=== PATIENT | male | born 1970 | race Two or more races ===

== ENCOUNTER 2019-03-23 05:39 | Inpatient (IN) | payer OTHER ==
[2019-03-23] VITALS (19 sets, daily range): BP systolic 119–146; BP diastolic 73–96
[~2019-03-23] VITALS: Ht 177.8 cm; Wt 128.8 kg
[2019-03-23] MEDS ORDERED: Vancomycin 1gm vial IVPB ONE (06:28)
[2019-03-23] MEDS ORDERED: Gelfoam Size TOPIC ONE (06:28)
[2019-03-23] MEDS ORDERED: Bacitracin 50000 Units Vial ONE (06:28)
[2019-03-23] MEDS ORDERED: Thrombin 5000 units TOPIC ONE (06:28)
[2019-03-23] MEDS ORDERED: OMEPRAZOLE20 M2 ORAL (06:30)
[2019-03-23] MEDS ORDERED: NORVASC10 MG ORAL (06:30)
[2019-03-23] MEDS ORDERED: LISINOPRIL20 MG ORAL (06:30)
[2019-03-23] MEDS ORDERED: Lidocaine 1% MPF 10mg/ml 5ml ONE (06:42)
[2019-03-23] MEDS ORDERED: Phenylephrine 10mg/ml Vial ONE (06:42)
[2019-03-23] MEDS ORDERED: Dexamethasone 4mg/ml vial ONE (06:42)
[2019-03-23] MEDS ORDERED: fentaNYL 100 mcg/2 mL IV ONE (06:44)
[2019-03-23] MEDS ORDERED: Midazolam 2mg/2ml Inj ONE (06:44)
--- NOTE | 2019-03-23 06:53 | Pre-Procedure Note/Attestation ---
Pre-Procedure Note/Attestation Complete Prior to Procedure Planned Procedure: not applicable Procedure Narrative: Cervical 56 Artificial disc replacement and Cervical 67 anterior cervical discectomy and fusion Indications for Procedure Pre-Operative Diagnosis: Herniation C56,67 Attestation I attest that I discussed the nature of the procedure; its benefits; risks and complications; and alternatives (and the risks and benefits of such alternatives ), prior to the procedure, with the patient (or the patient's legal sales representative livestock). I attest that, if there was a reasonable possibility of needing a blood transfusion, the patient (or the patient's legal sales representative livestock) was given the [facility] standardized written summary, pursuant to the [place] Blood Safety Act ([place] Health and Safety Code # 1645, as amended). I attest that I re-evaluated the patient just prior to the surgery and that there has been no change in the patient's H&P, except as documented below: Luther Villaseñor MD Mar 23, 2019 06:53
--- NOTE | 2019-03-23 06:54 | Brief Operative Note ---
Immediate Post Operative Note Operative Note Chief Complaint: neck pain and radiculopathy Pre-op Diagnosis: Herniation C56,67 Procedure: Cervical 56 Artificial disc replacement and Cervical 67 anterior cervical discectomy and fusion Post-op Diagnosis: same as pre-op Findings: consistent w/pre-op dx studies Surgeon: Charleen Filler Feeder: Hilda Anesthesiologist: AYDEE Anesthesia: general Specimen: none Complications: none Condition: stable Fluids: ivf Estimated Blood Loss: minimal Drains: none Implant(s) used?: Yes - nuvasive interlock c sz 6 [id number], prodisc c sz5 Luther Villaseñor MD Mar 23, 2019 06:54
[2019-03-23] MEDS ORDERED: Zemuron 50mg/5ml Inj IV ONE (06:56)
[2019-03-23] MEDS ORDERED: Succinylcholine 20mg/ml 10ml vial ONE (06:56)
[2019-03-23] MEDS ORDERED: NS Irrig 1000ml ONE (07:00)
[2019-03-23] MEDS ORDERED: LR 1000ml ONE (07:00)
[2019-03-23] MEDS ORDERED: Metoprolol 5mg/5ml Inj ONE (07:00)
[2019-03-23] MEDS ORDERED: ceFAZolin sod 2 GM in D5W 55 ML IVPB ONE (07:00)
[2019-03-23] MEDS ORDERED: Sterile Water Irrig 1000ml IRRIG ONE (07:00)
[2019-03-23] MEDS ORDERED: Propofol 1,000mg/ 100ml btl IV ONE (07:00)
[2019-03-23] MEDS ORDERED: Sodium Chloride 10ml vial INJ ONE (08:08)
[2019-03-23] MEDS ORDERED: Morphine Sulfate 10mg/ml Inj ONE (08:08)
[2019-03-23] MEDS ORDERED: Glycopyrrolate 0.2mg/ml 1ml Vial ONE (08:08)
[2019-03-23] MEDS ORDERED: Acetaminophen (Non formulary) 100 ML IV ONE (08:15)
[2019-03-23] MEDS ORDERED: LR 1000ml 1,000 ML IVLG SCH (08:18)
--- NOTE | 2019-03-23 08:18 | Anethesia Preoperative Eval ---
Anesthesia Pre-op PMH/ROS General Date of Evaluation: Mar 23, 2019 Time of Evaluation: 07:00 Anesthesiologist: Maryjo ASA Score: ASA 2 Mallampati Score Class I : Soft palate, uvula, fauces, pillars visible Class II: Soft palate, uvula, fauces visible Class III: Soft palate, base of uvula visible Class IV: Only hard plate visible Mallampati Classification: Class II Surgeon: Charleen Diagnosis: Cervical radiculopathy Surgical Procedure: ACDF Anesthesia History: none Family History: no anesthesia problems Allergies: Coded Allergies: No Known Allergies (Unverified , 03/20/19) Medications: see eMAR Patient NPO?: Yes NPO Date: Mar 22, 2019 NPO Time: 2199 Past Medical History Cardiovascular: Reports: HTN - stable; Denies: CAD, CO, valve dz, arrhythmia, other Pulmonary: Reports: MANUEL; Denies: asthma, COPD, other Gastrointestinal/Genitourinary: Reports: GERD; Denies: CRI, ESRD, other Neurologic/Psychiatric: Reports: other - chronic pain; Denies: dementia, CVA, depression/anxiety, TIA Endocrine: Denies: DM, hypothyroidism, steroids, other HEENT: Denies: cataract (L), cataract (R), glaucoma, KLUTI KAAH (L), KLUTI KAAH (R), other Hematology/Immune: Denies: anemia, DVT, bleeding disorder, other Musculoskeletal/Integumentary: Denies: OA, RA, DJD, DDD, edema, other Other: obesity PMH Narrative: as above PSxH Narrative: None Anesthesia Pre-op Phys. Exam Physician Exam Last Vital Signs Date Time Temp Pulse Resp B/P (MAP) Pulse Ox O2 Delivery O2 Flow Rate FiO2 03/23/19 06:51 97.7 82 20 119/73 (88) 95 03/23/19 06:20 Room Air Constitutional: NAD Neurologic: CN 2-12 intact Respiratory: CTA Gastrointestinal: S/NT/ND Airway Exam Mallampati Score: Class II MO: full Neck: stiff ROM: limited Teeth: intact Dentures: no upper, no lower Anesthesia Pre-op A/P Labs see chart Studies Pre-op Studies: EKG - NSR Risk Assessment & Plan Assessment: ASA 2 Plan: GA with ETT neuromonitoring Status Change Before Surgery: No Pre-Antibiotics Drug: Ancef 2 gr. Given Within 1 Hr of Incision: Yes Time Given: 07:40 Harjeet Sibley MD Mar 23, 2019 08:18
[2019-03-23] MEDS ORDERED: Ketorolac 30mg Inj ONE (08:24)
[2019-03-23] MEDS ORDERED: Hydromorphone 0.5mg/0.5ml inj IVP PRN (08:30)
[2019-03-23] MEDS ORDERED: Ketorolac 30mg Inj IV PRN (08:30)
[2019-03-23] MEDS ORDERED: DiphenhydrAMINE 50mg/ml Inj IVP PRN (08:30)
[2019-03-23] MEDS ORDERED: Meperidine 50mg/ml Inj(FOR RIGORS ONLY) IV PRN (08:30)
[2019-03-23] MEDS ORDERED: Propofol 200mg/20ml IV ONE (08:34)
--- NOTE | 2019-03-23 09:45 | Immediate Post-Op Evaluation ---
Immediate Post-Op Evalulation Immediate Post-Op Evalulation Procedure: ACDF C5-C7 Date of Evaluation: Mar 23, 2019 Time of Evaluation: 09:43 IV Fluids: 1000 Blood Products: none Estimated Blood Loss: 50 Urinary Output: 150 Blood Pressure Systolic: 128 Blood Pressure Diastolic: 86 Pulse Rate: 76 Respiratory Rate: 20 O2 Sat by Pulse Oximetry: 98 Temperature (Fahrenheit): 97.6 Pain Score (1-10): 2 Nausea: No Vomiting: No Complications none Patient Status: awake, patent, extubated, none Hydration Status: adequate Harjeet Sibley MD Mar 23, 2019 09:45
--- NOTE | 2019-03-23 11:10 | NUR ---
NURSE NOTES: Called RT to get Incentive Spirometer. Waiting for IS.
--- NOTE | 2019-03-23 11:16 | NUR ---
NURSE NOTES: Patient aware alert x4; on nasal cannula 2 Liter, patient sats 95%, no sign of distress and shortness of breath; no sign of chest pain; post-op cervical dressing on the anterior neck, Dermaband dry and intact, no sing of difficulty on breathing and gagging. 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 Head of the bed elevated, side rails up x2, breaks engaged; SCD on; Vitals taken upon arraival to the unit. Will take vitals Q30 minutes for one hour. Belonging lists listed and signed by patient's . Ice bag on the neck. Ice chips provided. Call light within reach. Will keep monitoring.
--- NOTE | 2019-03-23 11:23 | Diagnostic Imaging Report ---
INDICATION: Pain, intraoperative TECHNIQUE: Intraoperative imaging Fluoroscopy time: 39.5 seconds Total dose: [id number] mGym2 Total number of images: 6 COMPARISON: None FINDINGS: 6 intraoperative images demonstrate localizer needles projected over the C4-5 and C5-6 discs. Subsequent image demonstrates a surgical tool projected at the anterior aspect of the C5-6 disc. Subsequent images document placement of a disc prosthesis at C5-6, placement of anterior fusion hardware at C6-7. Hardware appears well aligned IMPRESSION: Intraoperative imaging, as described
[2019-03-23] MEDS ORDERED: Naloxone 0.4mg/ml Inj IVP PRN (12:00)
[2019-03-23] MEDS ORDERED: Morphine Sulfate 4mg/ml Inj (IV USE ONLY) IV PRN (12:00)
[2019-03-23] MEDS ORDERED: Metoclopramide 10mg/2ml Inj IVP PRN (12:00)
[2019-03-23] MEDS ORDERED: HYDROcodone/Acetamin 5/325 tab ORAL PRN (12:00)
[2019-03-23] MEDS ORDERED: Morphine Sulfate 2mg/ml Inj(IV/IM USE ONLY) IV PRN (12:00)
[2019-03-23] MEDS ORDERED: HYDROcodone/Acetamin 7.5/325 tab ORAL PRN ×2 (12:00)
[2019-03-23] MEDS ORDERED: Milk of Magnesia 30ml Ud ORAL PRN (12:00)
[2019-03-23] MEDS ORDERED: HYDROmorphone 1mg/ml Carpuject IVP PRN (12:00)
[2019-03-23] MEDS ORDERED: Chloraseptic Spray 20mL Bottle ORAL PRN (12:30)
[2019-03-23] MEDS: NS w/KCl 20mEq 1000ml 1,000 ML IV SCH ×2 (12:49→22:33)
[2019-03-23] MEDS: Dexamethasone 4mg/ml vial IVP SCH ×2 (12:56→17:20)
--- NOTE | 2019-03-23 13:35 | NUR ---
CASE MANAGEMENT:REVIEW 48 YR OLD MALE HERE FOR ELECTIVE SURGERY SI: NECK PAIN AND RADICULOPATHY 98.0 95 19 134/80 95% ON RA IS: TO SURGERY: C56. ARTIFICIAL DISC PLACEMENT IV ANCEF Q8HRS IVF@100/HR IV DECADRON : TO MED/SURG 3 EAST POST OP INTERQUAL CRITERIA MET
[2019-03-23] MEDS: ceFAZolin sod 1 GM in D5W 55 ML IV SCH ×2 (15:41→23:30)
--- NOTE | 2019-03-23 15:44 | General Progress Note ---
Assessment/Plan Assessment/Plan: Herniation C56,67 Cervical 56 Artificial disc replacement and Cervical 67 anterior cervical discectomy and fusion neck pain PLAN 1. incentive spirometry 2. DVT prophylaxis 3. PT evaluation and therapy 4. Hydration 5. Pain management 6. discharge once stable with outpatient follow up Subjective Allergies: Coded Allergies: No Known Allergies (Unverified , 03/20/19) Subjective asked to follow up post op Objective Last 24 Hour Vital Signs Date Time Temp Pulse Resp B/P (MAP) Pulse Ox O2 Delivery O2 Flow Rate FiO2 03/23/19 13:50 97.9 94 19 119/82 (94) 95 03/23/19 12:00 98.0 95 19 134/80 (98) 95 03/23/19 11:25 97.8 79 20 132/96 (108) 96 03/23/19 11:05 98.0 80 19 134/83 (100) 96 03/23/19 11:00 97.4 03/23/19 11:00 97.6 83 19 129/82 (98) 96 03/23/19 10:50 97.4 89 18 133/74 96 Nasal Cannula 3 03/23/19 10:40 86 18 144/83 95 Nasal Cannula 3 03/23/19 10:30 84 17 132/88 97 Nasal Cannula 3 03/23/19 10:20 79 16 128/91 96 Nasal Cannula 3 03/23/19 10:10 82 15 137/83 96 Nasal Cannula 3 03/23/19 10:00 88 17 128/88 95 Nasal Cannula 3 03/23/19 09:50 90 18 133/85 96 Simple Mask 6 03/23/19 09:45 86 15 146/85 97 Simple Mask 6 03/23/19 09:45 76 20 98 03/23/19 09:40 91 14 142/90 98 Simple Mask 6 03/23/19 09:36 97.4 86 16 138/76 98 Simple Mask 6 03/23/19 06:51 97.7 82 20 119/73 (88) 95 03/23/19 06:20 Room Air Height (Feet): 5 Height (Inches): 10.00 Weight (Pounds): 284 Objective WDWN NAD clear breath sounds bilaterally without rhonchi or wheeze [id number] without MRG NABS nontender no HSM no CCE nonfocal Chris Cervantes MD Mar 23, 2019 15:44
--- NOTE | 2019-03-23 16:00 | NUR ---
NURSE NOTES: Patient able to urinate. Will keep monitoring.
--- NOTE | 2019-03-23 16:30 | NUR ---
NURSE NOTES: New bag of ice bag provided.
[2019-03-23] MEDS: Docusate 100mg cap ORAL SCH (17:19)
--- NOTE | 2019-03-23 18:29 | NUR ---
NURSE NOTES: Patient drink 1200cc.
--- NOTE | 2019-03-23 19:24 | NUR ---
HAND-OFF: Report given to ONELIA uGidry.
--- NOTE | 2019-03-23 19:36 | NUR ---
NURSE NOTES: Report taken from ONELIA Thomas. Patient is awake, family at bedside, A&Ox4. Patient moved to chair despite RN instruction to wait for assistance, no issues, did remind the patient of potential risks post-op. No signs of distress on 3L NC. Minor complaint of soreness and pain at cervical site, 12/13. IV site/c/d/i and patent, running NS+20KCl at 100mls/hr. Surgical site c/d/i, open to air. D/C for patient once stable. Bed in lowest position, call light within reach.
[2019-03-23] MEDS: Morphine Sulfate 4mg/ml Inj (IV USE ONLY) IV PRN (21:16)
[2019-03-24] MEDS: Dexamethasone 4mg/ml vial IVP SCH ×2 (00:02→05:07)
[2019-03-24 00:37] VITALS: BP 119/75
--- NOTE | 2019-03-24 03:15 | Operative Note - Dictated ---
DATE OF OPERATION: 03/23/2019 NOTE: "POOR AUDIO QUALITY/DISTORTED AUDIO" SURGEON: Luther Villaseñor MD, Orthopaedic Spine Surgeon. HAND BUNCH MAKER: ALYSSA Meza. PREOPERATIVE DIAGNOSES: 1. Intractable neck pain. 2. Radiculopathy. 3. Herniation, C5-C6 and C6-C7. 4. Neural foraminal stenosis, C5-C6 and C6-C7. 5. Stenosis. POSTOPERATIVE DIAGNOSES: 1. Intractable neck pain. 2. Radiculopathy. 3. Herniation, C5-C6 and C6-C7. 4. Neural foraminal stenosis, C5-C6 and C6-C7. 5. Stenosis. PROCEDURE PERFORMED: 1. Anterior cervical discectomy and artificial disc replacement of C5-C6 using a Synthes ProDisc-C 5 height. 2. Anterior cervical discectomy and fusion of C6-C7 NuVasive Interlock C size 6 PEEK cage and mm screws Osteocel allograft bone and local autograft. 3. Use of intraoperative microscope. 4. Motor-evoked potential monitoring. 5. Somatosensory-evoked potential monitoring. 6. Supervision and interpretation of fluoroscopy. COMPLICATIONS: None. ANESTHESIA: General. ESTIMATED BLOOD LOSS: Less than 100 mL. INDICATIONS FOR SURGERY: This patient is a 48-year-old male who has a history of diagnoses as listed above. As of result of this, the patient sustained intractable neck pain, radiculopathy, herniation at C5-C6 and C6-C7, neural foraminal stenosis at C5-C6 and C6-C7, and stenosis. We tried a course of conservative management, but despite this course, there was still a significant component of persistent, recalcitrant neck pain and arm pain. The MRI demonstrated significant neural foraminal compromise secondary to disc herniations at C5-C6 and C6-C7. We had a long discussion with Man regarding the risks and benefits of surgery. Our discussion included but was not limited to nonoperative management, chiropractic management, another epidural steroid injection as well as definitive management in the form of surgery. We recommended an artificial disc replacement of cervical C5-C6 and anterior cervical discectomy and fusion of cervical C6-C7 as final definitive management. We reviewed the risks and benefits of surgery with the patient. Our discussion included a comprehensive review of the clinical issues and the nature of the clinical decision. We reviewed the alternatives, including doing nothing. The patient elected to proceed accordingly with an artificial disc replacement of cervical C5-C6 and anterior cervical discectomy and fusion of cervical C6-C7. We had a long discussion regarding the risks, alternatives, and benefits of surgery. Our description of the risks included a discussion in person as well as a signed consent which detailed all pertinent risks from the procedure itself. Briefly, our discussion included but was not limited to infection, bleeding, pseudarthrosis, spinal cord injury, neurovascular injury, dural tear, CSF leak, neuropathy, paralysis, permanent weakness/drop foot/drop arm, paresthesias, blindness, palsy, and weakness. The patient understood there may be a need for a revision surgery or additional procedures. Approach-related complications including dysphonia, dysphagia, blindness, permanent vocal cord and neural injury, hematoma, swallowing and breathing difficulty. Medical complications were reviewed including liver, kidney, shock, cardiopulmonary failure, anesthesia complications including , swelling, damage to the musculature, larynx/voice injury or loss, esophagus/throat, trachea, blood vessels and muscles/muscular sprain and lungs/pneumothorax during this surgical procedure; injury to deeper structures may be temporary or permanent. After this review of risks, the patient understood these and elected to proceed. A written and verbal consent was given. We discussed the pros and cons of all the alternatives. We discussed the uncertainties associated with the decision. Afterwards, I assessed the patient's understanding and explored their preferences. All questions were answered and no guarantees were given. Medical clearance was obtained prior to surgery. INTRAOPERATIVE FINDINGS: A discrete disc herniation which was found posterior to an obvious tear in the posterior longitudinal ligament at C5-C6. This was causing a considerable amount of neural foraminal stenosis with significant encroachment on the neural foramina and spinal cord, which was being impinged as a result of this pressure. Upon inspection of the interspace at cervical C6-C7, I noticed a rent in the posterior longitudinal ligament or PLL. Upon inspection of this tear once it was mobilized with Kerrison rongeurs, there was a disc fragment and herniation causing encroachment on the neural foramina and spinal cord posterior to the PLL. This was resected as well which caused some noted relief on the underlying neural elements. DESCRIPTION OF PROCEDURE: Under the benefit of general endotracheal anesthesia and with the assistance of the entire operative team, the patient was moved from the [facility] onto the operative table in the supine position. The head was secured and carefully positioned appropriately. Bilateral arms were secured with Gel Pads and foam and all bony prominences were padded. For the bilateral lower extremities, SCD and BRANDI hose were placed for DVT prophylaxis. A surgical timeout was called which corroborated our planned procedure of artificial disc replacement of an artificial disc replacement of cervical C5-C6 and anterior cervical discectomy and fusion of cervical C6-C7. Preoperative antibiotics were administered within 30 minutes of the incision for antibiotic prophylaxis. Using lateral fluoroscopic radiography, the operative levels were delineated. Next, the wound was prepped and draped with chlorhexidine and sterile drapes. An incision was based on lateral fluoroscopy and we centered our incision at the C5-C6 and C6-C7 interspace and next using a standard Mcintosh-Morales anterior-based approach, the incision was taken down through the skin and subcutaneous tissues until the vertebral bodies and their corresponding disc spaces were visualized. A needle was placed into the interspace to confirm placement of the operative interspace and we performed the remainder of procedure under microscopic visualization. Next, using bipolar and Bovie cautery to ensure meticulous hemostasis, the longus colli was mobilized bilaterally and retractors were placed deep to the longus colli bilaterally to address retraction. Next, we turned our attention to the radical anterior discectomy. This was initially performed at C5-C6 first by using a 15 blade scalpel followed by narrow pituitaries and a Microsect 5-B curette was used to denude the endplate of all cartilaginous tissue. Next, using a [employer] AM8 drill bit, the vertebral endplates were denuded of all residual cartilage in a nopt-co-tfql and yscio-jd-msbou fashion, and ultimately the posterior uncinate joints bilaterally and posterior osteophytic lips and margins were carefully denuded until clear visualization of the posterior longitudinal ligament was possible. An endplate preparation was performed in the exact same fashion using an intervertebral candy dipper hand, sequential distraction was obtained throughout the disc space. We saw a tear/rent in the PLL and this was carefully mobilized and dissected using a Microsect 1-B curette until we visualized a discrete disc herniation with compression of the spinal cord as well as neural foramina, which was sided. This neural foraminal compression was carefully resected using a Kerrison-1 and Kerrison-2 rongeurs until complete decompression of the spinal cord was visualized and complete decompression of the neural foramina and nerve root therein as well as the axilla and lateral margin of the nerve root was visualized and subsequently completely decompressed. The family was notified at one-hour intervals throughout the procedure to provide for consistent updates. We next turned our attention towards trialing our implant within the disc space. We initially tried size 5 and this ProDisc Cervical spacer fit well in regard to depth and width. This implant was opened and prepared. Next, under direct visualization, I confirmed excellent fit in respect to the anterior and posterior vertebral bodies, the uncinate joints and in regard to toggle. Once satisfied with this placement on serial AP and lateral fluoroscopy, I turned my attention towards cutting our didier. These were cut in the bones using a reciprocating drill and afterwards all free fragments of bone were irrigated. Next, FloSeal was placed into the interspace, then removed in its entirety and the implant was inserted using fluoroscopic guidance. Next, the Synthes ProDisc-C size 5 ADR was then carefully advanced and secured into the intervertebral space under direct visualization and with supervision of AP and lateral fluoroscopic views. I next turned my attention towards the radical anterior discectomy. This was then performed at Cervical C6-C7 first by using a 15 blade scalpel followed by narrow pituitaries and a Microsect 5-B curette was used to denude the endplate of all cartilaginous tissue. Next, using a [employer] AM8 drill bit, the vertebral endplates were denuded of all cartilaginous tissue in a rjia-fl-vypi and skwxq-oj-rwsxb fashion, and ultimately the posterior uncinate joints bilaterally and posterior osteophytic lips and margins were carefully denuded until wide and thorough visualization of the posterior longitudinal ligament was possible. At this level, the endplate preparation was performed in the exact same fashion using an intervertebral candy dipper hand, sequential distraction was obtained throughout the disc space. We saw a tear/rent in the PLL and this was carefully mobilized and dissected using a Microsect 1-B curette until we visualized an obvious disc herniation with compression of the spinal cord as well as neural foramina which was sided. This neural foraminal compression was carefully resected using a Kerrison-1 and Kerrison-2 rongeurs until complete decompression of the spinal cord was visualized and complete decompression of the neural foramina and nerve root therein as well as the axilla and lateral margin of the nerve root was visualized and subsequently completely decompressed. We next turned our attention towards trialing our implant within the disc space. We initially tried size 5 and afterwards size 6 trial from the NuVasive Interlock system at each level, which appeared to be appropriate under AP and lateral fluoroscopy as well as in terms of its height, depth, width, and lack of toggle. The PEEK (polyetheretherketone) interbody cages were then both packed with allograft bone from Osteocel and local autograft bone matrix. Next, these were then carefully advanced and secured into their intervertebral spaces under direct visualization and with supervision of AP and lateral fluoroscopic views. We next turned our attention towards plating. Plating was performed at each level with the NuVasive Interlock-C plating system. A total of screws, size mm in length were inserted and confirmed under AP and lateral fluoroscopy and confirmed to be in excellent position. After a finger sweep, we confirmed removal of all sponges. The retractor was removed and we next turned our attention to meticulous hemostasis with FloSeal and bipolar cautery. After the sponge and needle count was again found to be correct with our second count, we next turned our attention to closure. The wound was again copiously irrigated with antibiotic-impregnated saline. Closure consisted of 4-0 clear nylon for the platysma and 5-0 clear nylon for the superficial skin. Final skin closure and dressings consisted of Dermabond. Prior to final closure, a final radiograph was obtained, which demonstrated the hardware was intact with excellent position throughout. The patient tolerated the procedure well. The patient was carefully extubated after the conclusion of surgery. We discussed the findings of the surgery with the family upon completion of the case. At this point, the patient was transferred to the spine floor for further observation. Luther Villaseñor M.D. DR: ABBE JOB#: [id number] CC:
[2019-03-24 04:00] VITALS: BP 131/78
[2019-03-24] MEDS: Morphine Sulfate 4mg/ml Inj (IV USE ONLY) IV PRN (04:21)
--- NOTE | 2019-03-24 07:15 | NUR ---
NURSE NOTES: Report received from Campos ROUSSEAU, rounds made. Patient sitting at bedside, alert, oriented x4 calm. Tolerating breakfast, no NV. Denies pain at this time. No distress on RA. Anterior right/mid neck surgical site, CDI, dermabond, surrounding skin intact, no redness/swelling or drainage. CMS + no NT, wiggles, skin warm, hand grasps/pedal pushes equal/strong. Encouraged IS use, (patient demonstrated correctly, reinforced indication and 10x/hr), verbalized understanding. Call light in reach, bed in lowest position, will continue to monitor.
--- NOTE | 2019-03-24 07:20 | NUR ---
HAND-OFF: Report given to ONELIA Harvey. Patient is awake and VS stable.
[2019-03-24 08:00] VITALS: BP 128/78
[2019-03-24] MEDS: NS w/KCl 20mEq 1000ml 1,000 ML IV SCH (08:27)
[2019-03-24] MEDS: ceFAZolin sod 1 GM in D5W 55 ML IV SCH (08:28)
[2019-03-24] MEDS: Docusate 100mg cap ORAL SCH (08:35)
--- NOTE | 2019-03-24 10:28 | NUR ---
PT Note PT maco completed. Patient was educated on cervical spine precautions and proper body mechanics. Patient verbalized his understanding. No further PT treatment needed at this time. Addendum: 03/24/19 at 1028 by JASON ROBINS PT Amended: Links added.
--- NOTE | 2019-03-24 10:52 | 48 Hour Post Anesthesia Eval ---
Post Anesthesia Evaluation Procedure: ACDF C5-C7 Date of Evaluation: Mar 24, 2019 Time of Evaluation: 10:50 Blood Pressure Systolic: 128 0: 78 Pulse Rate: 64 Respiratory Rate: 22 Temperature (Fahrenheit): 97.6 O2 Sat by Pulse Oximetry: 98 Airway: patent Nausea: No Vomiting: No Pain Intensity: 3 Hydration Status: adequate Cardiopulmonary Status: stable Mental Status/LOC: patient returned to baseline Follow-up Care/Observations: n/a Post-Anesthesia Complications: none Follow-up care needed: ready to discharge Harjeet Sibley MD Mar 24, 2019 10:51
[2019-03-24 12:00] VITALS: BP 109/62
[2019-03-24] MEDS ORDERED: NORCO 10-325 T1 EACH ORAL (12:32)
--- NOTE | 2019-03-24 13:00 | NUR ---
NURSE NOTES: Discharge instructions reviewed with patient and spouse, verbalized understanding. IV heplock discontinued, no active bleeding. All belongings (IS sent) and discharge instructions given to patient. Anterior neck surgical site remains unchanged. Patient showered prior to discharge. Patient ambulated down to lobby with RN, in stable condition. Discharged home at 1300.
--- NOTE | 2019-03-26 09:58 | Discharge Summary ---
Discharge Summary Hospital Course Date of Admission Mar 23, 2019 at 05:39 Date of Discharge Mar 24, 2019 at 13:00 Admitting Diagnosis Neck pain and radiculopathy. Herniation C5-6, C6-7 Reason for Hospitalization: elective surgery JACOB Allan is a 48 year old male who was admitted on Mar 23, 2019 at 05:39 for neck pain , radiculopathy, herniation C5-6, C6-7. Patient was admitted for elective surgery. Consultations dr Cervantes-IM/pulmo Procedures s/p 03/23/[address] Villaseñor Cervical C5-6 Artificial disc replacement and Cervical C6-7 anterior cervical discectomy and fusion Hospital Course status post surgery course of recovery uneventful initially IV fluids s/p perioperative antibiotics neurovascular status closely monitored, stable incision clean dry, and intact pain management addressed ; pain controlled hemodynamically stable ambulated with PT fall precautions maintained; safe for ambulation DVT prophylaxis provided use of incentive spirometry was encouraged while in the bed started on soft diet as tolerated Chloraseptic spray provided for comfort as needed patient was able to tolerate diet, , IV fluids discontinued GI prophylaxis provided antiemetics were on board as needed voided freely bowel regimen instituted patient was stable for discharge discharge instructions provided follow up with surgeon in clinic as outpatient as advised by surgeon FINAL DIAGNOSES 1. Intractable neck pain. 2. Cervical radiculopathy. 3. Herniation, C5-C6 and C6-C7. 4. Neural foraminal stenosis, C5-C6 and C6-C7. 5. s/p Cervical C5- 6 Artificial disc replacement and Cervical C6-7 anterior cervical discectomy and fusion Discharge Medications Continued Medications: Amlodipine Besylate (Norvasc) 10 Mg Tablet 10 MG ORAL DAILY, TAB (This prescription has been renewed) Hydrocodone Bit/Acetaminophen 10-325* ([place] 10-325*) 1 Each Tablet 1 TAB ORAL Q8HR PRN for For Pain, #90 TAB 0 Refills (This prescription has been renewed) PRN PAIN Lisinopril (Lisinopril*) 20 Mg Tablet 20 MG ORAL DAILY, TAB (This prescription has been renewed) Omeprazole (Omeprazole) 20 Mg Capsule. 20 MG ORAL DAILY, CAP (This prescription has been renewed) Discharge Condition Upon Discharge: stable Discharge Disposition Patient was discharged home Discharge Instructions Discharge Instructions Special Instructions I have been assigned to complete a D/C Summary on this account. I was not involved in the patient management Colleen Schmid NP Mar 26, 2019 09:58
== END 2019-03-24 13:00 | disposition home or self-care (01) | DRG 473 ==
LOC: SDSOVERFLO 05:39 → 3E 10:53
DX: M48.02 Spinal stenosis, cervical region (principal); K21.9 Gastro-esophageal reflux disease without esophagitis; I10 Essential (primary) hypertension
CPT/HCPCS: 36415; 72040; 76000; 86850; 86900; 86901; 87081; 94003; 94150; J2250; J2370